=== PATIENT | female | born 1945 | race Caucasian/White ===

== ENCOUNTER 2018-08-28 10:33 | Emergency (ER) | payer MEDICARE ==
[~2018-08-28] VITALS: Ht 160 cm; Wt 66.5 kg
[~2018-08-28 10:33] MED LIST: ASPI-41 PO; ATOR10TA PO; DOCU100C40 PO; HYDR-3972 PO; METO25TA6 PO; MULTIVIT PO; OMEP20CA10 PO; [UNRECOGNIZED DRUG - OTHER] PO
[2018-08-28 10:48] VITALS: BP 151/54
== END 2018-08-28 13:09 | disposition home or self-care (01) ==
LOC: ER 10:33
DX: S60.032A Contusion of left middle finger without damage to nail, initial encounter (principal); S00.83XA Contusion of other part of head, initial encounter; S93.401A Sprain of unspecified ligament of right ankle, initial encounter; I25.10 Atherosclerotic heart disease of native coronary artery without angina pectoris; I25.2 Old myocardial infarction; E11.9 Type 2 diabetes mellitus without complications; Z90.49 Acquired absence of other specified parts of digestive tract; Z91.013 Allergy to seafood; Z79.82 Long term (current) use of aspirin; W01.0XXA Fall on same level from slipping, tripping and stumbling without subsequent striking against object, initial encounter; Y93.89 Activity, other specified; Y92.89 Other specified places as the place of occurrence of the external cause; Y99.8 Other external cause status
CPT/HCPCS: 70450; 73130; 73610; 82948; 99284

== ENCOUNTER 2018-12-22 12:01 | Inpatient (IN) | payer MEDICARE | END 2018-12-24 15:30 | disposition home or self-care (01) | LOC: ER 12:01 → ORTHO 4S 17:05 | DX: E87.1 Hypo-osmolality and hyponatremia (principal); E83.42 Hypomagnesemia ==

== ENCOUNTER 2019-05-15 13:55 | Day surgery (SDC) | payer MEDICARE ==
[2019-05-10 12:04] LABS: BASOPHILS # (AUTO) 0.1 X10'3 (0-0.2); BASOPHILS % (AUTO) 1.3 % (0-1); EOSINOPHILS # (AUTO) 0.1 X10'3 (0-0.9); EOSINOPHILS % (AUTO) 2.4 % (0-6); HEMATOCRIT 28.8 % (35.0-45.0); HEMOGLOBIN 9.8 g/dl (12.0-16.0); LYMPHOCYTES # (AUTO) 1.7 X10'3 (1.1-4.8); LYMPHOCYTES % (AUTO) 30.3 % (21-51); MEAN CORPUSCULAR HEMOGLOBIN 30.1 PG (27.0-31.0); MEAN CORPUSCULAR HGB CONC 34.2 g/dL (33.0-36.5); MEAN CORPUSCULAR VOLUME 88.1 FL (78-98); MEAN PLATELET VOLUME 6.9 FL (7.4-10.4); MONOCYTES # (AUTO) 0.5 X10'3 (0-0.9); MONOCYTES % (AUTO) 9.2 % (2-12); NEUTROPHILS # (AUTO) 3.1 X10'3 (1.8-7.7); NEUTROPHILS % (AUTO) 56.8 % (42-75); PLATELET COUNT 233 X10'3 (140-440); RED BLOOD COUNT 3.26 X10'6 (4.20-5.60); WHITE BLOOD COUNT 5.5 X10'3 (4.5-11.0)
[2019-05-10 12:08] LABS: ALBUMIN 3.3 G/DL (3.4-5.0); ANION GAP 5 (8-16); BLOOD UREA NITROGEN 10 MG/DL (7-18); BUN/CREATININE RATIO 11.8 (6.6-38.0); CALCIUM 8.7 MG/DL (8.5-10.1); CHLORIDE 94 MMOL/L (99-107); CREATININE 0.85 MG/DL (0.40-0.90); GLUCOSE 105 MG/DL (70-104); POTASSIUM 4.4 MMOL/L (3.5-5.1); SODIUM 129 MMOL/L (135-145); TOTAL CARBON DIOXIDE 30.5 MMOL/L (24-32); eGFR 65 ML/MIN
[2019-05-10 12:11] LABS: PARTIAL THROMBOPLASTIN TIME 25 SECONDS (22-32)
[~2019-05-15] VITALS: Ht 160 cm; Wt 65.4 kg
[2019-05-15] VITALS (8 sets, daily range): BP systolic 111–200; BP diastolic 17–68
[~2019-05-15 13:55] MED LIST changes: -ASPI-41 PO; +ASPI-611 PO; -ATOR10TA PO; +ATOR80TA PO; +CARV-50 PO; +CHOL2000 PO; -DOCU100C40 PO; +FERR-116 PO; +FURO-149 PO; +FURO-150 PO; -HYDR-3972 PO; +LISI-600 PO; +LOSA50TA64 PO; +MAGN64TA10 PO; +METF500T PO; -METO25TA6 PO; +MULT-227 PO; -MULTIVIT PO; +NITR0.4T51 SL; -OMEP20CA10 PO; +OMEP20CA11 PO; +PIOG15TA8 PO; +POTA10TA19 PO; -[UNRECOGNIZED DRUG - OTHER] PO
[2019-05-15] MEDS ORDERED: LORazepam 0.5 MG tablet PO ONE (14:20)
[2019-05-15] MEDS ORDERED: diphenhydrAMINE 25mg capsule PO ONE (14:20)
[2019-05-15] MEDS ORDERED: normal saline 1000ml 1,000 ML IV SCH (14:20)
[2019-05-15] MEDS ORDERED: FURO-150 PO (14:49)
[2019-05-15] MEDS ORDERED: VITA1TAB63 PO (14:49)
[2019-05-15] MEDS ORDERED: LOSA100T57 PO (14:49)
[2019-05-15] MEDS ORDERED: CLOP75TA15 PO (14:49)
[2019-05-15] MEDS ORDERED: ALEN70TA60 PO (14:49)
[2019-05-15] MEDS ORDERED: OSC500T PO (14:49)
[2019-05-15] MEDS ORDERED: PIOG30TA10 PO (14:49)
[2019-05-15] MEDS ORDERED: MAGN400C PO (14:49)
[2019-05-15] MEDS ORDERED: fentaNYL/PF 50MCG/1 ML 2ML syringe ONE (18:19)
[2019-05-15] MEDS ORDERED: midazolam 2 mg/2 ml injection ONE (18:19)
[2019-05-15] MEDS ORDERED: iohexol 350MG/ML 100ml bottle IV ONE (18:19)
[2019-05-15] MEDS ORDERED: LIDOcaine 1% (10mg/ml)w/preservative injection 20ml MDV ONE (18:19)
[2019-05-15] MEDS ORDERED: HYDROcodone/acetaminophen 5mg/325mg tablet PO PRN (19:35)
[2019-05-15] MEDS ORDERED: ondansetron/PF 4mg/2ml inj IV PRN (19:35)
[2019-05-15] MEDS ORDERED: HYDROcodone/acetaminophen 10/325mg tab PO PRN (19:35)
[2019-05-15] MEDS ORDERED: proCHLORperazine 10 MG/2 ml inj IV PRN (19:35)
[2019-05-15] MEDS ORDERED: OXAZEpam 15mg capsule PO PRN (19:35)
== END 2019-05-15 21:25 | disposition home or self-care (01) ==
LOC: SSTAY O 13:55
PROVIDERS: ATTEND Internal Medicine Interventional Cardiology
DX: I25.10 Atherosclerotic heart disease of native coronary artery without angina pectoris (principal); R07.9 Chest pain, unspecified; R94.39 Abnormal result of other cardiovascular function study; E11.9 Type 2 diabetes mellitus without complications; I11.0 Hypertensive heart disease with heart failure; I50.9 Heart failure, unspecified; E78.5 Hyperlipidemia, unspecified; Z95.1 Presence of aortocoronary bypass graft
CPT/HCPCS: 36415; 80048; 82948; 85025; 85610; 85730; 93005; 93459; 99152; 99153; C1769; C1894; J1644; J2001; J2250; J3010; J7030; Q0163; Q9967; A4620; A6258

== ENCOUNTER 2019-05-25 07:52 | Day surgery (SDC) | payer MEDICARE ==
[~2019-05-25] VITALS: Ht 160 cm; Wt 65.9 kg
[2019-05-25] VITALS (11 sets, daily range): BP systolic 140–182; BP diastolic 53–90
[~2019-05-25 07:52] MED LIST changes: +ALEN70TA60 PO; +CLOP75TA15 PO; -FURO-149 PO; -LISI-600 PO; +LOSA100T57 PO; -LOSA50TA64 PO; +MAGN400C PO; -MAGN64TA10 PO; +OSC500T PO; -PIOG15TA8 PO; +PIOG30TA10 PO; +VITA1TAB63 PO
[2019-05-25] MEDS ORDERED: acetaminophen 325mg tablet PO ONE (08:35)
[2019-05-25] MEDS ORDERED: diphenhydrAMINE 25mg capsule PO ONE (08:40)
[2019-05-25] MEDS ORDERED: FERR324T2 PO (08:42)
[2019-05-25] MEDS ORDERED: normal saline 1000ml 1,000 ML IV SCH (08:50)
[2019-05-25] MEDS ORDERED: CARV-50 PO (17:50)
[2019-05-25] MEDS ORDERED: CALC300T4 PO (17:50)
[2019-05-26] MEDS ORDERED: dexamethasone sod phosphate 4mg/ml inj. IV SCH (08:00)
== END 2019-05-25 15:40 | disposition home or self-care (01) ==
LOC: SSTAY O 07:52
PROVIDERS: ATTEND Internal Medicine Hematology & Oncology
DX: D64.9 Anemia, unspecified (principal); Z79.899 Other long term (current) drug therapy
CPT/HCPCS: 36415; 36430; 82948; 86885; 86900; 86901; 86920; 86945; J7030; P9016; Q0163; J1100

== ENCOUNTER 2019-05-25 15:54 | Inpatient (IN) | payer MEDICARE ==
[~2019-05-25] VITALS: Ht 160 cm; Wt 65.0 kg
[~2019-05-25 15:54] MED LIST changes: +FERR324T2 PO
[2019-05-25 17:09] LABS: BASOPHILS # (AUTO) 0.1 X10'3 (0-0.2); BASOPHILS % (AUTO) 0.6 % (0-1); EOSINOPHILS % (AUTO) 0 % (0-6); LYMPHOCYTES # (AUTO) 0.7 X10'3 (1.1-4.8); LYMPHOCYTES % (AUTO) 7.2 % (21-51); MEAN CORPUSCULAR HEMOGLOBIN 29.9 PG (27.0-31.0); MEAN CORPUSCULAR HGB CONC 34.5 g/dL (33.0-36.5); MEAN CORPUSCULAR VOLUME 86.6 FL (78-98); MEAN PLATELET VOLUME 7.3 FL (7.4-10.4); MONOCYTES # (AUTO) 0.4 X10'3 (0-0.9); NEUTROPHILS # (AUTO) 7.9 X10'3 (1.8-7.7); NEUTROPHILS % (AUTO) 88.2 % (42-75); PLATELET COUNT 258 X10'3 (140-440); RED BLOOD COUNT 3.35 X10'6 (4.20-5.60); RED CELL DISTRIBUTION WIDTH 18.1 % (11.5-14.5)
--- NOTE | 2019-05-25 17:11 | NUR ---
snow technician and family at bedside.
[2019-05-25 17:23] LABS: ALANINE AMINOTRANSFERASE 45 U/L (12-78); ALBUMIN 3.1 G/DL (3.4-5.0); ALBUMIN/GLOBULIN RATIO 0.9 (1.1-1.5); ALKALINE PHOSPHATASE 76 IU/L (46-116); ANION GAP 9 (8-16); ASPARTATE AMINO TRANSFERASE 45 U/L (10-37); BILIRUBIN,TOTAL 2.5 MG/DL (0.1-1.0); BLOOD UREA NITROGEN 15 MG/DL (7-18); BUN/CREATININE RATIO 16.1 (6.6-38.0); CALCIUM 8.9 MG/DL (8.5-10.1); CHLORIDE 93 MMOL/L (99-107); CREATININE 0.93 MG/DL (0.40-0.90); GLUCOSE 178 MG/DL (70-104); POTASSIUM 4.8 MMOL/L (3.5-5.1); SODIUM 126 MMOL/L (135-145); TOTAL CARBON DIOXIDE 24.2 MMOL/L (24-32); TOTAL PROTEIN 6.6 G/DL (6.4-8.2); eGFR 59 ML/MIN
[2019-05-25] MEDS ORDERED: ondansetron/PF 4mg/2ml inj IV PRN (17:30)
[2019-05-25] MEDS ORDERED: magnesium hydroxide 30ml (MOM) UD suspension PO PRN (17:30)
[2019-05-25] MEDS ORDERED: mag hydrox/Alum hydrox/simeth 30ml oral suspension PO PRN (17:30)
[2019-05-25] MEDS ORDERED: morphine 2 MG/ML inj. syringe IV PRN ×2 (17:30)
[2019-05-25 17:31] LABS: MAGNESIUM 1.9 MG/DL (1.5-2.4)
[2019-05-25] MEDS ORDERED: CALC300T4 PO (17:50)
[2019-05-25] MEDS ORDERED: CARV-50 PO (17:50)
[2019-05-25] MEDS ORDERED: nitroGLYCERIN 0.4mg SUBLingual tab SL PRN (18:20)
[2019-05-25 18:33] LABS: CLARITY,URINE SLIGHTLY CLOUDY (Clear); COLOR,URINE YELLOW (Yellow); GLUCOSE, URINE NEGATIVE (Neg); KETONES,URINE 15 mg/dl (Neg); NITRITES, URINE NEGATIVE (Neg); OCCULT BLOOD,URINE SMALL (Neg); PROTEIN,URINE 30 mg/dl (Neg); UA COLLECTION TYPE CLN CATCH MIDSTREAM
[2019-05-25 18:34] LABS: LEUKOCYTE ESTERASE ,URINE SMALL (Neg); UROBILINOGEN,URINE 0.2 E.U/dL (0.2-1.0)
[2019-05-25 18:36] LABS: BACTERIA,URINE 4+ /HPF (Neg); MUCUS STRANDS NONE SEEN /LPF (Neg); SQUAMOUS EPITHELIAL CELL,UR FEW /LPF (FEW); WBC CLUMPS,URINE FEW /HPF (NEGATIVE); WBC,URINE 30-50 /HPF (0-4)
--- NOTE | 2019-05-25 18:48 | NUR ---
Called ED to get report. RN in another line, will called back
[2019-05-25] MEDS ORDERED: Thrombin (Bovine) 5,000 unit vial TP ONE (18:55)
--- NOTE | 2019-05-25 19:16 | NUR ---
TEXTED DR MOLINA THAT PATIENT WILL GO TO ROOM 3013B AFTER IR PROCEEDURE. CALLED JULIUS SAENZ AND TOLD HER THE PLAN.
[2019-05-25 19:30] VITALS: BP 123/97
[2019-05-25] MEDS ORDERED: fentaNYL/PF 50MCG/1 ML 2ML syringe ONE (19:30)
[2019-05-25 19:40] VITALS: BP 152/59
[2019-05-25 19:45] VITALS: BP 140/85
[2019-05-25 19:50] VITALS: BP 155/72
[2019-05-25] MEDS ORDERED: heparin, porcine 5000 units/ml vial SQ SCH (20:00)
[2019-05-25] MEDS: furosemide 10 MG/1 ML 10ml inj IV SCH (20:00)
--- NOTE | 2019-05-25 20:00 | NUR ---
Received report from Tim in ED at 19:10. Pt was admitted with a c/o of SOB. Pt had angiogram done 10 days ago and had a blood transfusion, 2 units, today because her hg was 6. Pt underwent a rt groin pseudoaneurysm and cannot move rt leg for 6 hours. Upon arrival at PCU the pt is alert and oriented X4, denies CP, SOB, n/v, dizziness, and rated pain 0/10. VS are as follow: Temp: 97.7; BP: 149/64; HR: 83; SPO2: 97% at RA. Per doctor's order pt's SPO2 has to be between 88% and 90% in 2L of oxygen via NC. However, her SPO2 is 97% at RA. Her daughter and son-in-law stated that patient takes Metformin at home and has a hx of DM-2.
[2019-05-25] MEDS: carVEDilol 12.5mg tablet PO SCH (21:34)
[2019-05-25] MEDS: calcium carbonate 500mg tablet PO SCH (21:50)
[2019-05-25 22:00] VITALS: BP 147/64
[2019-05-26 02:00] VITALS: BP 143/96
[2019-05-26 05:56] LABS: BASOPHILS % (AUTO) 0.3 % (0-1); EOSINOPHILS % (AUTO) 0.1 % (0-6); HEMATOCRIT 26.6 % (35.0-45.0); HEMOGLOBIN 9.2 g/dl (12.0-16.0); LYMPHOCYTES # (AUTO) 0.9 X10'3 (1.1-4.8); LYMPHOCYTES % (AUTO) 10.6 % (21-51); MEAN CORPUSCULAR HEMOGLOBIN 29.9 PG (27.0-31.0); MEAN CORPUSCULAR HGB CONC 34.5 g/dL (33.0-36.5); MEAN CORPUSCULAR VOLUME 86.5 FL (78-98); MEAN PLATELET VOLUME 7.4 FL (7.4-10.4); MONOCYTES # (AUTO) 0.9 X10'3 (0-0.9); MONOCYTES % (AUTO) 11.2 % (2-12); NEUTROPHILS # (AUTO) 6.2 X10'3 (1.8-7.7); NEUTROPHILS % (AUTO) 77.8 % (42-75); PLATELET COUNT 243 X10'3 (140-440); RED BLOOD COUNT 3.08 X10'6 (4.20-5.60); RED CELL DISTRIBUTION WIDTH 18.1 % (11.5-14.5)
[2019-05-26 06:00] VITALS: BP 125/48
--- NOTE | 2019-05-26 06:19 | NUR ---
DART: MRSA 2-Rn Skin Check. Pic of rt groin needs to be taken
--- NOTE | 2019-05-26 06:30 | NUR ---
Patient in room [facility] 3013. I have received report from LETTY Lugo and had the opportunity to ask questions and assume patient care. Addendum: 05/26/19 at 1625 by Teri Kohli RN Report received from LETTY hCin, not Parish.
[2019-05-26 06:38] LABS: ALBUMIN 2.9 G/DL (3.4-5.0); ANION GAP 9 (8-16); BLOOD UREA NITROGEN 19 MG/DL (7-18); BUN/CREATININE RATIO 18.6 (6.6-38.0); CALCIUM 9.2 MG/DL (8.5-10.1); CHLORIDE 95 MMOL/L (99-107); CREATININE 1.02 MG/DL (0.40-0.90); GLUCOSE 129 MG/DL (70-104); POTASSIUM 4.3 MMOL/L (3.5-5.1); SODIUM 130 MMOL/L (135-145); TOTAL CARBON DIOXIDE 25.7 MMOL/L (24-32); eGFR 53 ML/MIN
--- NOTE | 2019-05-26 06:40 | NUR ---
Problems reprioritized. Patient report given, questions answered & plan of care reviewed with LETTY Garcia. Pt stable at shift change
[2019-05-26] MEDS ORDERED: glucagon, human recombinant 1mg kit SUBCUT PRN (06:55)
[2019-05-26] MEDS ORDERED: MESSAGE TO PHARMACY PO ONE (06:55)
[2019-05-26] MEDS ORDERED: dextrose ORAL solution 15 GM/59 ML bottle PO PRN ×2 (06:55)
[2019-05-26] MEDS ORDERED: dextrose 50%-water 50ml dispensing syringe IV PRN ×2 (06:55)
[2019-05-26] MEDS ORDERED: insulin Lispro (HumaLOG) vial - multi-dose SQ SCH (06:55)
--- NOTE | 2019-05-26 07:32 | NUR ---
PAGER ID: [phone] MESSAGE: Dr. Rodriguez patient Lizandro Hopper in 13B, PCU last trop 0.69. Please advise. Thank you, Steph Williamson RN PCU, [id number]
--- NOTE | 2019-05-26 07:38 | NUR ---
Spoke with Dr. Zuniga regarding the patient's Troponin and after reviewing patient's chart would like me to contact Dr. Mccauley and let him know what is going on with this patient.
[2019-05-26] MEDS ORDERED: losartan 50mg tablet PO SCH (08:00)
[2019-05-26] MEDS ORDERED: atorvastatin 20mg tablet PO SCH (08:00)
[2019-05-26] MEDS ORDERED: FLU VACC QS2019-20 36MOS UP/PF 60 MCG/0.5 ML SYRINGE IMVAC ONE (08:25)
[2019-05-26] MEDS ORDERED: pneumococcal 23-VAL P-sac vacc 25 mcg/0.5ml vial IMVAC ONE (08:25)
[2019-05-26] MEDS: pantoprazole 40mg Tablet.DR PO SCH (08:29)
[2019-05-26] MEDS: furosemide 10 MG/1 ML 10ml inj IV SCH ×2 (08:30→20:08)
[2019-05-26] MEDS: carVEDilol 12.5mg tablet PO SCH ×2 (08:31→20:05)
[2019-05-26] MEDS: aspirin 81mg tablet.DR PO SCH (08:34)
[2019-05-26] MEDS: magnesium oxide 400mg tablet PO SCH (08:35)
[2019-05-26] MEDS: cholecalciferol (vitamin D) 400 unit tablet PO SCH (08:37)
[2019-05-26] MEDS: multivitamins, therapeutics tablet PO SCH (08:37)
[2019-05-26] MEDS: calcium carbonate 500mg tablet PO SCH ×2 (08:37→20:05)
[2019-05-26] MEDS: vitamin B comp w/Vit. C tab 1 TAB TABLET PO SCH (08:37)
[2019-05-26] MEDS: clopidogrel 75mg tablet PO SCH (08:50)
[2019-05-26 11:00] VITALS: BP 135/50
[2019-05-26 15:00] VITALS: BP 136/43
--- NOTE | 2019-05-26 17:06 | NUR ---
Patient reports that she received a phone call from Dr. Hoang regarding a UA that was done in her office 2 days ago. The doctor told the patient that she needs to be on an abx. I checked the results of the UA that we did here at [facility] and it is positive for Gram negative rods. I sent the following message to Dr. Zuniga and will await call back for orders for this patient. PAGER ID: [phone] MESSAGE: Dr. Zuniga, Patient Roxann Hopper. has a positive UA for gram negative rods. Please advise. Ebony Williamson RN PCU [id number]
[2019-05-26] MEDS ORDERED: HYDROcodone/acetaminophen 10/325mg tab PO PRN (17:25)
[2019-05-26] MEDS ORDERED: HYDROcodone/acetaminophen 5mg/325mg tablet PO PRN (17:25)
[2019-05-26] MEDS: acetaminophen 325mg tablet PO PRN (17:48)
[2019-05-26] MEDS: CefTRIAXone/D5W-Rocephin 1gm 50 ML IV SCH (17:48)
[2019-05-26 18:00] VITALS: BP 152/34
--- NOTE | 2019-05-26 18:10 | NUR ---
Patient in room PCU 3013. I have received report from LETTY CRISTINA and had the opportunity to ask questions and assume patient care.
--- NOTE | 2019-05-26 18:30 | NUR ---
Problems reprioritized. Patient report given, questions answered & plan of care reviewed with LETTY Maloney.
[2019-05-26] MEDS: atorvastatin 20mg tablet PO SCH (20:04)
[2019-05-26] MEDS: losartan 50mg tablet PO SCH (20:05)
[2019-05-26] MEDS: insulin glargine (Lantus) pen - multi-dose SQ SCH (21:00)
[2019-05-26 22:00] VITALS: BP 142/47
[2019-05-27] VITALS (8 sets, daily range): BP systolic 145–157; BP diastolic 47–60
--- NOTE | 2019-05-27 06:09 | NUR ---
Problems reprioritized. Patient report given, questions answered & plan of care reviewed with LETTY Sexton.
--- NOTE | 2019-05-27 06:13 | NUR ---
Patient in room PCU 3013. I have received report from LETTY Maloney and had the opportunity to ask questions and assume patient care. Patient currently resting in bed, bed locked and low, call light in reach, no acute distress, will continue to monitor.
[2019-05-27 06:45] LABS: BASOPHILS # (AUTO) 0.1 X10'3 (0-0.2); BASOPHILS % (AUTO) 0.8 % (0-1); EOSINOPHILS # (AUTO) 0.2 X10'3 (0-0.9); EOSINOPHILS % (AUTO) 2.2 % (0-6); HEMATOCRIT 25.5 % (35.0-45.0); HEMOGLOBIN 8.8 g/dl (12.0-16.0); LYMPHOCYTES # (AUTO) 1.4 X10'3 (1.1-4.8); LYMPHOCYTES % (AUTO) 19.4 % (21-51); MEAN CORPUSCULAR HEMOGLOBIN 30.1 PG (27.0-31.0); MEAN CORPUSCULAR HGB CONC 34.7 g/dL (33.0-36.5); MEAN CORPUSCULAR VOLUME 86.6 FL (78-98); MONOCYTES # (AUTO) 0.7 X10'3 (0-0.9); MONOCYTES % (AUTO) 9.9 % (2-12); NEUTROPHILS # (AUTO) 4.8 X10'3 (1.8-7.7); NEUTROPHILS % (AUTO) 67.7 % (42-75); PLATELET COUNT 248 X10'3 (140-440); RED BLOOD COUNT 2.94 X10'6 (4.20-5.60); RED CELL DISTRIBUTION WIDTH 18.6 % (11.5-14.5)
[2019-05-27 07:17] LABS: ALBUMIN 2.8 G/DL (3.4-5.0); ANION GAP 11 (8-16); BLOOD UREA NITROGEN 22 MG/DL (7-18); BUN/CREATININE RATIO 20.2 (6.6-38.0); CALCIUM 8.7 MG/DL (8.5-10.1); CHLORIDE 96 MMOL/L (99-107); CREATININE 1.09 MG/DL (0.40-0.90); GLUCOSE 123 MG/DL (70-104); POTASSIUM 3.9 MMOL/L (3.5-5.1); SODIUM 133 MMOL/L (135-145); TOTAL CARBON DIOXIDE 26.5 MMOL/L (24-32); eGFR 49 ML/MIN
[2019-05-27] MEDS: furosemide 10 MG/1 ML 10ml inj IV SCH ×2 (07:37→20:24)
[2019-05-27] MEDS: CefTRIAXone/D5W-Rocephin 1gm 50 ML IV SCH (07:38)
[2019-05-27] MEDS: carVEDilol 12.5mg tablet PO SCH ×2 (07:38→20:25)
[2019-05-27] MEDS: vitamin B comp w/Vit. C tab 1 TAB TABLET PO SCH (07:38)
[2019-05-27] MEDS: calcium carbonate 500mg tablet PO SCH ×2 (07:38→20:25)
[2019-05-27] MEDS: aspirin 81mg tablet.DR PO SCH (07:38)
[2019-05-27] MEDS: pantoprazole 40mg Tablet.DR PO SCH (07:38)
[2019-05-27] MEDS: multivitamins, therapeutics tablet PO SCH (07:38)
[2019-05-27] MEDS: magnesium oxide 400mg tablet PO SCH (07:38)
[2019-05-27] MEDS: clopidogrel 75mg tablet PO SCH (07:38)
[2019-05-27] MEDS: cholecalciferol (vitamin D) 400 unit tablet PO SCH (08:03)
[2019-05-27 08:04] LABS: ANISOCYTOSIS 2+; PLATELET ESTIMATE NORMAL
[2019-05-27 08:05] LABS: BURR CELLS FEW; POLYCHROMASIA FEW; SCHISTOCYTES FEW
[2019-05-27] MEDS: acetaminophen 325mg tablet PO PRN (12:01)
--- NOTE | 2019-05-27 18:30 | NUR ---
Patient in room PCU 3013. I have received report from Carlie SAENZ and had the opportunity to ask questions and assume patient care. Patient is resting comfortably. Will continue to monitor.
--- NOTE | 2019-05-27 18:32 | NUR ---
Problems reprioritized. Patient report given, questions answered & plan of care reviewed with LETTY Angel. Patient stable at shift change
[2019-05-27] MEDS: atorvastatin 20mg tablet PO SCH (20:25)
[2019-05-27] MEDS: lactobacillus rhamnosus 10,000 MMU CELLS/CAPSULE PO SCH (20:26)
[2019-05-27] MEDS: losartan 50mg tablet PO SCH (20:26)
[2019-05-27] MEDS: insulin glargine (Lantus) pen - multi-dose SQ SCH (20:42)
[2019-05-28 03:00] VITALS: BP 181/62
[2019-05-28 06:00] VITALS: BP 130/92
--- NOTE | 2019-05-28 06:21 | NUR ---
Problems reprioritized. Patient report given, questions answered & plan of care reviewed with Geetha SAENZ and Carlie RN.
[2019-05-28 06:37] LABS: BASOPHILS # (AUTO) 0.1 X10'3 (0-0.2); BASOPHILS % (AUTO) 0.9 % (0-1); EOSINOPHILS # (AUTO) 0.2 X10'3 (0-0.9); EOSINOPHILS % (AUTO) 2.4 % (0-6); HEMATOCRIT 27.7 % (35.0-45.0); HEMOGLOBIN 9.6 g/dl (12.0-16.0); LYMPHOCYTES # (AUTO) 0.9 X10'3 (1.1-4.8); LYMPHOCYTES % (AUTO) 11.5 % (21-51); MEAN CORPUSCULAR HEMOGLOBIN 30.3 PG (27.0-31.0); MEAN CORPUSCULAR HGB CONC 34.8 g/dL (33.0-36.5); MEAN CORPUSCULAR VOLUME 87.3 FL (78-98); MEAN PLATELET VOLUME 7.2 FL (7.4-10.4); MONOCYTES # (AUTO) 0.7 X10'3 (0-0.9); MONOCYTES % (AUTO) 8.3 % (2-12); NEUTROPHILS # (AUTO) 6.3 X10'3 (1.8-7.7); NEUTROPHILS % (AUTO) 76.9 % (42-75); PLATELET COUNT 290 X10'3 (140-440); RED BLOOD COUNT 3.17 X10'6 (4.20-5.60); RED CELL DISTRIBUTION WIDTH 18.5 % (11.5-14.5); WHITE BLOOD COUNT 8.2 X10'3 (4.5-11.0)
--- NOTE | 2019-05-28 06:37 | NUR ---
Patient in room PCU 3013B. I have received report from Jeanne SAENZ and had the opportunity to ask questions and assume patient care.
[2019-05-28 06:46] LABS: ALBUMIN 2.9 G/DL (3.4-5.0); ANION GAP 5 (8-16); BLOOD UREA NITROGEN 21 MG/DL (7-18); CALCIUM 8.5 MG/DL (8.5-10.1); CHLORIDE 97 MMOL/L (99-107); CREATININE 1.05 MG/DL (0.40-0.90); GLUCOSE 131 MG/DL (70-104); POTASSIUM 3.7 MMOL/L (3.5-5.1); SODIUM 133 MMOL/L (135-145); TOTAL CARBON DIOXIDE 30.7 MMOL/L (24-32); eGFR 51 ML/MIN
--- NOTE | 2019-05-28 08:00 | NUR ---
I have reviewed Physical Assessment charting of Carlie Cordova RN and agree with assessment.
[2019-05-28] MEDS: pantoprazole 40mg Tablet.DR PO SCH (08:09)
[2019-05-28] MEDS: carVEDilol 12.5mg tablet PO SCH (08:10)
[2019-05-28] MEDS: furosemide 10 MG/1 ML 10ml inj IV SCH (08:10)
[2019-05-28] MEDS: magnesium oxide 400mg tablet PO SCH (08:11)
[2019-05-28] MEDS: lactobacillus rhamnosus 10,000 MMU CELLS/CAPSULE PO SCH (08:11)
[2019-05-28] MEDS: aspirin 81mg tablet.DR PO SCH (08:11)
[2019-05-28] MEDS: clopidogrel 75mg tablet PO SCH (08:12)
[2019-05-28] MEDS: vitamin B comp w/Vit. C tab 1 TAB TABLET PO SCH (08:12)
[2019-05-28] MEDS: calcium carbonate 500mg tablet PO SCH (08:12)
[2019-05-28] MEDS: multivitamins, therapeutics tablet PO SCH (08:12)
[2019-05-28] MEDS: cholecalciferol (vitamin D) 400 unit tablet PO SCH (08:13)
[2019-05-28] MEDS: CefTRIAXone/D5W-Rocephin 1gm 50 ML IV SCH (09:12)
[2019-05-28 11:00] VITALS: BP 157/48
--- NOTE | 2019-05-28 14:20 | NUR ---
Per MD, patient stable for transfer to [facility]. Called report to Dorota MARTINEZ, and all questions answered. All belongings sent with patient. IV removed with catheter intact and tele monitor removed. Patient transferred to [facility] via [facility], accompanied by [facility] staff.
--- NOTE | 2019-05-28 15:09 | NUR ---
[employer] documentation: I have reviewed and agree with all interventions, assessments performed and documented by Carlie SAENZ .
== END 2019-05-28 14:20 | DRG 270 ==
LOC: ER 15:54 → ED HOLD 18:23 → PCU 3S 20:10
PROVIDERS: ADMIT Family Medicine; ATTEND Family Medicine
PROC: 3E053GC Introduction of Other Therapeutic Substance into Peripheral Artery, Percutaneous Approach (ICD-10-PCS; 2019-05-25)
PROC: 04V Lower Arteries, Restriction (ICD-10-PCS; 2019-05-25)
PROC: 3E02340 Introduction of Influenza Vaccine into Muscle, Percutaneous Approach (ICD-10-PCS; principal; 2019-05-27)
PROC: 3E0234Z Introduction of Serum, Toxoid and Vaccine into Muscle, Percutaneous Approach (ICD-10-PCS; 2019-05-27)
DX: T81.718A Complication of other artery following a procedure, not elsewhere classified, initial encounter (principal); I50.33 Acute on chronic diastolic (congestive) heart failure; I21.A1 Myocardial infarction type 2; E87.1 Hypo-osmolality and hyponatremia; I13.0 Hypertensive heart and chronic kidney disease with heart failure and stage 1 through stage 4 chronic kidney disease, or unspecified chronic kidney disease; N39.0 Urinary tract infection, site not specified; D62 Acute posthemorrhagic anemia; E11.51 Type 2 diabetes mellitus with diabetic peripheral angiopathy without gangrene; B96.1 Klebsiella pneumoniae [K. pneumoniae] as the cause of diseases classified elsewhere; Z60.2 Problems related to living alone; N18.9 Chronic kidney disease, unspecified; Y84.0 Cardiac catheterization as the cause of abnormal reaction of the patient, or of later complication, without mention of misadventure at the time of the procedure; I72.4 Aneurysm of artery of lower extremity; D63.8 Anemia in other chronic diseases classified elsewhere; D46.9 Myelodysplastic syndrome, unspecified; E11.22 Type 2 diabetes mellitus with diabetic chronic kidney disease; I25.10 Atherosclerotic heart disease of native coronary artery without angina pectoris; Z95.1 Presence of aortocoronary bypass graft; I25.2 Old myocardial infarction; Z91.041 Radiographic dye allergy status; Z91.013 Allergy to seafood; Z23 Encounter for immunization; Z79.82 Long term (current) use of aspirin; Z85.6 Personal history of leukemia; Z80.9 Family history of malignant neoplasm, unspecified; Z83.3 Family history of diabetes mellitus; Z82.49 Family history of ischemic heart disease and other diseases of the circulatory system; Z90.49 Acquired absence of other specified parts of digestive tract; Z79.84 Long term (current) use of oral hypoglycemic drugs; Y92.89 Other specified places as the place of occurrence of the external cause
CPT/HCPCS: 36002; 36415; 71045; 76942; 80048; 80053; 81001; 82948; 83036; 83735; 83880; 84484; 85025; 86885; 86900; 86901; 86920; 86945; 87077; 87081; 87088; 87186; 90732; 93005; 93926; 97110; 97116; 97161; 97530; 99285; G0378; J0696; J1815; J1940; J2270; J3010; Q2037

== ENCOUNTER 2020-04-08 16:40 | Observation (INO) | payer MEDICARE ==
[~2020-04-08] VITALS: Ht 154.9 cm; Wt 59.1 kg
[~2020-04-08 16:40] MED LIST changes: +CALC300T4 PO; +CLON-529 PO; -FERR-116 PO; -OMEP20CA11 PO; +OMEP20CA15 PO; -OSC500T PO; -POTA10TA19 PO; +SPIR25TA PO
[2020-04-08 17:13] LABS: BASOPHILS # (AUTO) 0.1 X10'3 (0-0.2); BASOPHILS % (AUTO) 0.9 % (0-1); EOSINOPHILS # (AUTO) 0.1 X10'3 (0-0.9); EOSINOPHILS % (AUTO) 1.7 % (0-6); HEMATOCRIT 22.5 % (35.0-45.0); HEMOGLOBIN 7.7 g/dl (12.0-16.0); LYMPHOCYTES # (AUTO) 0.7 X10'3 (1.1-4.8); LYMPHOCYTES % (AUTO) 10.6 % (21-51); MEAN CORPUSCULAR HEMOGLOBIN 31.9 PG (27.0-31.0); MEAN CORPUSCULAR HGB CONC 34.4 g/dL (33.0-36.5); MEAN CORPUSCULAR VOLUME 92.8 FL (78-98); MEAN PLATELET VOLUME 6.6 FL (7.4-10.4); MONOCYTES # (AUTO) 0.6 X10'3 (0-0.9); NEUTROPHILS # (AUTO) 5.2 X10'3 (1.8-7.7); NEUTROPHILS % (AUTO) 77.8 % (42-75); PLATELET COUNT 252 X10'3 (140-440); RED BLOOD COUNT 2.43 X10'6 (4.20-5.60); WHITE BLOOD COUNT 6.7 X10'3 (4.5-11.0)
[2020-04-08] MEDS ORDERED: FERR325T29 PO (17:24)
[2020-04-08 17:29] LABS: ALANINE AMINOTRANSFERASE 15 U/L (12-78); ALBUMIN 2.9 G/DL (3.4-5.0); ALBUMIN/GLOBULIN RATIO 0.9 (1.1-1.5); ALKALINE PHOSPHATASE 68 IU/L (46-116); ANION GAP 8 (8-16); ASPARTATE AMINO TRANSFERASE 27 U/L (10-37); BILIRUBIN,TOTAL 0.7 MG/DL (0.1-1.0); BLOOD UREA NITROGEN 20 MG/DL (7-18); BUN/CREATININE RATIO 18.3 (6.6-38.0); CALCIUM 8.6 MG/DL (8.5-10.1); CHLORIDE 96 MMOL/L (99-107); CREATININE 1.09 MG/DL (0.40-0.90); GLUCOSE 136 MG/DL (70-104); POTASSIUM 4.7 MMOL/L (3.5-5.1); SODIUM 130 MMOL/L (135-145); TOTAL CARBON DIOXIDE 25.9 MMOL/L (24-32); TOTAL PROTEIN 6.1 G/DL (6.4-8.2); eGFR 49 ML/MIN
[2020-04-08] MEDS ORDERED: magnesium Cl slow-release 64mg tablet PO PRN (18:00)
[2020-04-08] MEDS ORDERED: metoclopramide 5 mg/ml inj IV PRN (18:00)
[2020-04-08] MEDS ORDERED: magnesium 4gm in 100ml NS 100 ML IV PRN (18:00)
[2020-04-08] MEDS ORDERED: potassium CL 10mEq/100ml bag 100 ML IV PRN ×2 (18:00)
[2020-04-08] MEDS ORDERED: ondansetron/PF 4mg/2ml inj IV PRN (18:00)
[2020-04-08] MEDS ORDERED: HYDROcodone/acetaminophen 5mg/325mg tablet PO PRN (18:00)
[2020-04-08] MEDS ORDERED: acetaminophen 325mg tablet PO PRN ×2 (18:00)
[2020-04-08] MEDS ORDERED: magnesium 2GM in 50ml NS 50 ML IV PRN (18:00)
[2020-04-08] MEDS ORDERED: potassium Cl 20 mEq SR tablet PO PRN ×2 (18:00)
[2020-04-08] MEDS ORDERED: mag hydrox/Alum hydrox/simeth 30ml oral suspension PO PRN (18:00)
[2020-04-08] MEDS ORDERED: magnesium hydroxide 30ml (MOM) UD suspension PO PRN (18:00)
[2020-04-08] MEDS ORDERED: nitroGLYCERIN 0.4mg SUBLingual tab SL PRN (18:05)
[2020-04-08] MEDS ORDERED: cloNIDine 0.1 mg tablet PO PRN (18:05)
[2020-04-08 18:11] LABS: PLATELET ESTIMATE NORMAL
[2020-04-08 18:12] LABS: ANISOCYTOSIS 1+; POIKILOCYTOSIS 1+; POLYCHROMASIA FEW
[2020-04-08 18:14] LABS: ACANTHOCYTES FEW; BURR CELLS 1+; TEAR DROP CELLS FEW
[2020-04-08 18:16] LABS: SCHISTOCYTES 1+
[2020-04-08] MEDS ORDERED: benzocaine/menthol oral lozeng 1 EACH BOX MM PRN (18:40)
[2020-04-08] MEDS: HYDROcodone/acetaminophen 10/325mg tab PO PRN (18:47)
[2020-04-08] MEDS: furosemide 20MG tablet PO SCH (19:30)
[2020-04-08] MEDS: carVEDilol 12.5mg tablet PO SCH (19:30)
[2020-04-08] MEDS: K and/or MAG REPLACEMENT MC SCH (19:41)
[2020-04-08 20:00] VITALS: BP 124/32
[2020-04-08] MEDS ORDERED: temazepam 15mg capsule PO PRN (21:00)
[2020-04-08 22:00] VITALS: BP 119/44
[2020-04-09] VITALS (7 sets, daily range): BP systolic 100–139; BP diastolic 32–84
[2020-04-09] MEDS: HYDROcodone/acetaminophen 10/325mg tab PO PRN ×4 (00:53→14:14)
--- NOTE | 2020-04-09 06:35 | NUR ---
Patient in room [facility] 4021B. I have received report from LETTY Marquez and had the opportunity to ask questions and assume patient care.
[2020-04-09] MEDS ORDERED: pantoprazole 40mg Tablet.DR PO SCH (07:30)
[2020-04-09] MEDS ORDERED: losartan 50mg tablet PO SCH (08:00)
[2020-04-09] MEDS ORDERED: magnesium oxide 400mg tablet PO SCH (08:00)
[2020-04-09] MEDS ORDERED: atorvastatin 20mg tablet PO SCH (08:00)
[2020-04-09] MEDS: carVEDilol 12.5mg tablet PO SCH (08:00)
[2020-04-09] MEDS ORDERED: clopidogrel 75mg tablet PO SCH (08:00)
[2020-04-09] MEDS ORDERED: aspirin 81mg tablet.DR PO SCH (08:00)
[2020-04-09] MEDS ORDERED: pioglitazone 15mg tablet PO SCH (08:00)
[2020-04-09] MEDS: K and/or MAG REPLACEMENT MC SCH (08:00)
[2020-04-09] MEDS: furosemide 20MG tablet PO SCH (08:00)
[2020-04-09 09:37] LABS: HEMATOCRIT 24.5 % (35.0-45.0); HEMOGLOBIN 8.5 g/dl (12.0-16.0); MEAN CORPUSCULAR HEMOGLOBIN 31.3 PG (27.0-31.0); MEAN CORPUSCULAR HGB CONC 34.6 g/dL (33.0-36.5); MEAN CORPUSCULAR VOLUME 90.5 FL (78-98); MEAN PLATELET VOLUME 6.9 FL (7.4-10.4); PLATELET COUNT 222 X10'3 (140-440); RED CELL DISTRIBUTION WIDTH 16.5 % (11.5-14.5); WHITE BLOOD COUNT 5.6 X10'3 (4.5-11.0)
[2020-04-09 09:44] LABS: ALBUMIN 2.5 G/DL (3.4-5.0); ANION GAP 4 (8-16); BLOOD UREA NITROGEN 18 MG/DL (7-18); CALCIUM 8.2 MG/DL (8.5-10.1); CHLORIDE 99 MMOL/L (99-107); GLUCOSE 177 MG/DL (70-104); MAGNESIUM 1.6 MG/DL (1.5-2.4); POTASSIUM 4.5 MMOL/L (3.5-5.1); SODIUM 132 MMOL/L (135-145); TOTAL CARBON DIOXIDE 28.7 MMOL/L (24-32); eGFR 54 ML/MIN
--- NOTE | 2020-04-09 11:55 | NUR ---
Student documentation: I have reviewed interventions, assessments performed and documented by Tonia GRAYSON . Student Medication Administration: For this medication-pass time frame, all medication were reviewed, dispensed, administered and documented per hospital policy by Tonia GRAYSON.
--- NOTE | 2020-04-09 14:43 | NUR ---
Problems reprioritized. Patient report given, questions answered & plan of care reviewed with Nereida Hintonquis.
[2020-04-10] MEDS ORDERED: spironolactone 25 MG tablet PO SCH (08:00)
== END 2020-04-09 14:40 ==
LOC: ER 16:42 → ED HOLD 17:57 → ORTHO 4S 19:55
PROVIDERS: ADMIT Family Medicine; ATTEND Family Medicine
DX: D62 Acute posthemorrhagic anemia (principal); I25.10 Atherosclerotic heart disease of native coronary artery without angina pectoris; I12.9 Hypertensive chronic kidney disease with stage 1 through stage 4 chronic kidney disease, or unspecified chronic kidney disease; E11.22 Type 2 diabetes mellitus with diabetic chronic kidney disease; N18.9 Chronic kidney disease, unspecified; D63.8 Anemia in other chronic diseases classified elsewhere; E11.51 Type 2 diabetes mellitus with diabetic peripheral angiopathy without gangrene; I25.2 Old myocardial infarction; M81.0 Age-related osteoporosis without current pathological fracture; Z87.891 Personal history of nicotine dependence; Z87.81 Personal history of (healed) traumatic fracture; Z90.49 Acquired absence of other specified parts of digestive tract; Z95.1 Presence of aortocoronary bypass graft; Z95.820 Peripheral vascular angioplasty status with implants and grafts; Z79.899 Other long term (current) drug therapy; Z88.5 Allergy status to narcotic agent; Z91.013 Allergy to seafood; Z91.048 Other nonmedicinal substance allergy status
CPT/HCPCS: 36415; 36430; 71045; 80048; 80053; 82948; 83735; 85025; 85027; 85610; 86870; 86880; 86885; 86900; 86901; 86902; 86922; 87081; 93005; 99285; G0378; P9016; 85008

== ENCOUNTER 2022-03-19 21:28 | Emergency (ER) | payer MEDICARE, MEDICAID ==
[~2022-03-19] VITALS: Ht 160 cm; Wt 57.9 kg
[~2022-03-19 21:28] MED LIST changes: -FERR324T2 PO; +FERR325T29 PO
[2022-03-19 22:39] LABS: BASOPHILS % (AUTO) 0.3 % (0-1); EOSINOPHILS # (AUTO) 0.1 X10'3 (0-0.9); EOSINOPHILS % (AUTO) 0.5 % (0-6); HEMATOCRIT 37.2 % (35.0-45.0); HEMOGLOBIN 12.3 g/dl (12.0-16.0); LYMPHOCYTES # (AUTO) 0.3 X10'3 (1.1-4.8); LYMPHOCYTES % (AUTO) 3.1 % (21-51); MEAN CORPUSCULAR HEMOGLOBIN 29.2 PG (27.0-31.0); MEAN CORPUSCULAR HGB CONC 33.1 g/dL (33.0-36.5); MEAN CORPUSCULAR VOLUME 88.1 FL (78-98); MEAN PLATELET VOLUME 8.5 FL (7.4-10.4); MONOCYTES # (AUTO) 0.5 X10'3 (0-0.9); MONOCYTES % (AUTO) 5.1 % (2-12); PLATELET COUNT 220 X10'3 (140-440); RED BLOOD COUNT 4.22 X10'6 (4.20-5.60); RED CELL DISTRIBUTION WIDTH 14.7 % (11.5-14.5); WHITE BLOOD COUNT 9.9 X10'3 (4.5-11.0)
[2022-03-19] MEDS ORDERED: ondansetron/PF 4mg/2ml inj IV ONE (22:50)
[2022-03-19] MEDS ORDERED: normal saline 500ml IV soln 500 ML IV ONE (22:50)
[2022-03-19 23:05] LABS: ALANINE AMINOTRANSFERASE 19 U/L (12-78); ALBUMIN 3.2 G/DL (3.4-5.0); ALBUMIN/GLOBULIN RATIO 0.9 (1.1-1.5); ALKALINE PHOSPHATASE 64 IU/L (46-116); ANION GAP 12 (8-16); BILIRUBIN,TOTAL 0.8 MG/DL (0.1-1.0); BLOOD UREA NITROGEN 35 MG/DL (7-18); BUN/CREATININE RATIO 18.8 (6.6-38.0); CALCIUM 9.4 MG/DL (8.5-10.1); CHLORIDE 101 MMOL/L (99-107); CREATININE 1.86 MG/DL (0.40-0.90); GLUCOSE 140 MG/DL (70-104); SODIUM 135 MMOL/L (135-145); TOTAL CARBON DIOXIDE 22.3 MMOL/L (24-32); TOTAL PROTEIN 6.6 G/DL (6.4-8.2); eGFR 26 ML/MIN
[2022-03-19 23:10] LABS: ASPARTATE AMINO TRANSFERASE 32 U/L (10-37); POTASSIUM 5.2 MMOL/L (3.5-5.1)
[2022-03-20 00:07] LABS: CLARITY,URINE CLEAR (Clear); COLOR,URINE YELLOW (Yellow); GLUCOSE, URINE NEGATIVE (Neg); KETONES,URINE 40 mg/dl (Neg); LEUKOCYTE ESTERASE ,URINE LARGE (Neg); NITRITES, URINE POSITIVE (Neg); OCCULT BLOOD,URINE TRACE-INTACT (Neg); PROTEIN,URINE NEGATIVE (Neg); UROBILINOGEN,URINE 0.2 E.U/dL (0.2-1.0)
[2022-03-20 00:11] LABS: UA COLLECTION TYPE CLN CATCH MIDSTREAM
[2022-03-20 00:14] LABS: TRIPLE PHOSPHATE CRYST 1+ /HPF (NEGATIVE)
[2022-03-20 00:15] LABS: AMORPHOUS PHOSPHATES 1+; BACTERIA,URINE 3+ /HPF (Neg); MUCUS STRANDS MODERATE /LPF (Neg); SQUAMOUS EPITHELIAL CELL,UR MODERATE /LPF (FEW); WBC,URINE TNTC /HPF (0-4)
[2022-03-20] MEDS ORDERED: cefazolin/dext.iso 2gm/100ml 100 ML IV SCH (01:02)
[2022-03-20] MEDS ORDERED: CEPH500C2 PO (01:04)
[2022-03-20] MEDS ORDERED: ONDA4TAB12 PO (01:05)
[2022-03-20] MEDS ORDERED: normal saline 1000ml 1,000 ML IV SCH (01:10)
[2022-03-20 01:48] LABS: ANION GAP 10 (8-16); CHLORIDE 104 MMOL/L (99-107); GLUCOSE 96 MG/DL (70-104); POTASSIUM 4.3 MMOL/L (3.5-5.1); SODIUM 136 MMOL/L (135-145); TOTAL CARBON DIOXIDE 21.9 MMOL/L (24-32)
[2022-03-20 01:49] LABS: ALBUMIN 2.6 G/DL (3.4-5.0); BLOOD UREA NITROGEN 32 MG/DL (7-18); BUN/CREATININE RATIO 20.4 (6.6-38.0); CALCIUM 8.1 MG/DL (8.5-10.1); CREATININE 1.57 MG/DL (0.40-0.90); eGFR 32 ML/MIN
[2022-03-20 03:23] VITALS: BP 144/67
== END 2022-03-20 03:26 | disposition home or self-care (01) ==
LOC: ER 21:29
DX: N39.0 Urinary tract infection, site not specified (principal); R11.2 Nausea with vomiting, unspecified; E11.9 Type 2 diabetes mellitus without complications; Z91.041 Radiographic dye allergy status; Z88.5 Allergy status to narcotic agent; Z91.013 Allergy to seafood; Z87.891 Personal history of nicotine dependence
CPT/HCPCS: 36415; 71045; 80048; 80053; 81001; 83880; 84484; 85025; 93005; 96365; 96366; 96375; 99285; J0690; J2405; J7030; J7040; 81003

== ENCOUNTER 2022-11-14 16:40 | Emergency (ER) | payer MEDICARE, MEDICAID ==
[~2022-11-14] VITALS: Ht 160 cm; Wt 63.6 kg
[~2022-11-14 16:40] MED LIST changes: +ONDA4TAB12 PO
[2022-11-14 17:19] VITALS: BP 101/55
[2022-11-14] MEDS ORDERED: HYDR-3973 PO (18:52)
[2022-11-14] MEDS ORDERED: HYDROcodone/acetaminophen 10/325mg tab PO ONE (18:55)
== END 2022-11-14 19:22 | disposition home or self-care (01) ==
LOC: ER 16:41
DX: M25.561 Pain in right knee (principal); M25.562 Pain in left knee; E11.9 Type 2 diabetes mellitus without complications; Z88.2 Allergy status to sulfonamides; Z91.041 Radiographic dye allergy status; Z90.49 Acquired absence of other specified parts of digestive tract; W19.XXXA Unspecified fall, initial encounter; Y93.89 Activity, other specified; Y92.89 Other specified places as the place of occurrence of the external cause; Y99.8 Other external cause status
CPT/HCPCS: 73560; 99283; A6449

== ENCOUNTER 2022-11-18 12:31 | Emergency (ER) | payer MEDICARE, MEDICAID ==
[~2022-11-18] VITALS: Ht 160 cm; Wt 63.6 kg
[~2022-11-18 12:31] MED LIST changes: +HYDR-3973 PO
[2022-11-18 13:32] LABS: BASOPHILS % (AUTO) 0.3 % (0-1); EOSINOPHILS # (AUTO) 0.1 X10'3 (0-0.9); EOSINOPHILS % (AUTO) 0.4 % (0-6); HEMATOCRIT 33.9 % (35.0-45.0); HEMOGLOBIN 11.1 g/dl (12.0-16.0); MEAN CORPUSCULAR HEMOGLOBIN 29.1 PG (27.0-31.0); MEAN CORPUSCULAR HGB CONC 32.8 g/dL (33.0-36.5); MEAN CORPUSCULAR VOLUME 88.7 FL (78-98); MEAN PLATELET VOLUME 8.7 FL (7.4-10.4); MONOCYTES # (AUTO) 0.9 X10'3 (0-0.9); MONOCYTES % (AUTO) 6.2 % (2-12); NEUTROPHILS # (AUTO) 12.6 X10'3 (1.8-7.7); NEUTROPHILS % (AUTO) 86.1 % (42-75); PLATELET COUNT 223 X10'3 (140-440); RED BLOOD COUNT 3.83 X10'6 (4.20-5.60); RED CELL DISTRIBUTION WIDTH 14.8 % (11.5-14.5); WHITE BLOOD COUNT 14.6 X10'3 (4.5-11.0)
[2022-11-18 13:40] LABS: ANION GAP 11 (8-16); BLOOD UREA NITROGEN 33 MG/DL (7-18); BUN/CREATININE RATIO 18.9 (10.0-20.0); CALCIUM 8.6 MG/DL (8.5-10.1); CHLORIDE 102 MMOL/L (99-107); CREATININE 1.75 MG/DL (0.40-0.90); GLUCOSE 197 MG/DL (70-104); POTASSIUM 5.1 MMOL/L (3.5-5.1); SODIUM 134 MMOL/L (135-145); eGFR 28 ML/MIN
[2022-11-18 13:41] LABS: ALANINE AMINOTRANSFERASE 28 U/L (12-78); ALBUMIN 2.8 G/DL (3.4-5.0); ALBUMIN/GLOBULIN RATIO 0.8 (1.1-1.5); ALKALINE PHOSPHATASE 89 IU/L (46-116); ASPARTATE AMINO TRANSFERASE 23 U/L (10-37); BILIRUBIN,TOTAL 0.6 MG/DL (0.1-1.0); LIPASE 62 U/L (73-393); TOTAL PROTEIN 6.2 G/DL (6.4-8.2)
[2022-11-18 17:31] LABS: CLARITY,URINE CLOUDY (Clear); COLOR,URINE YELLOW (Yellow); GLUCOSE, URINE NEGATIVE (Neg); KETONES,URINE NEGATIVE (Neg); LEUKOCYTE ESTERASE ,URINE SMALL (Neg); NITRITES, URINE NEGATIVE (Neg); OCCULT BLOOD,URINE LARGE (Neg); PH,URINE 5.5 (4.8-8.0); PROTEIN,URINE NEGATIVE (Neg); UROBILINOGEN,URINE 0.2 E.U/dL (0.2-1.0)
[2022-11-18 17:50] LABS: UA COLLECTION TYPE CLN CATCH MIDSTREAM
[2022-11-18 17:52] LABS: WBC,URINE 30-50 /HPF (0-4)
[2022-11-18 17:53] LABS: BACTERIA,URINE 3+ /HPF (Neg); SQUAMOUS EPITHELIAL CELL,UR FEW /LPF (FEW); TRANSITIONAL EPI CELLS,URINE FEW /HPF
[2022-11-18 17:54] LABS: WBC CLUMPS,URINE FEW /HPF (NEGATIVE)
[2022-11-18] MEDS ORDERED: amox tr/potassium clavulanate 875/125mg TAB PO ONE (18:15)
[2022-11-18] MEDS ORDERED: AMOX-117 PO (18:28)
[2022-11-18 18:51] VITALS: BP 141/81
== END 2022-11-18 22:48 | disposition home or self-care (01) ==
LOC: ER 12:37
DX: N39.0 Urinary tract infection, site not specified (principal); I50.9 Heart failure, unspecified; E11.9 Type 2 diabetes mellitus without complications; D64.9 Anemia, unspecified; Z87.81 Personal history of (healed) traumatic fracture; Z90.49 Acquired absence of other specified parts of digestive tract; Z88.8 Allergy status to other drugs, medicaments and biological substances; Z88.2 Allergy status to sulfonamides; Z79.899 Other long term (current) drug therapy; Z88.5 Allergy status to narcotic agent; Z91.013 Allergy to seafood; Z79.1 Long term (current) use of non-steroidal anti-inflammatories (NSAID); Z79.2 Long term (current) use of antibiotics
CPT/HCPCS: 36415; 73560; 80053; 81001; 83690; 85025; 87077; 87088; 87186; 99284